=== PATIENT | female | born 1945 | race Caucasian/White ===

== ENCOUNTER → 2019-12-16 | Outpatient (CLI) | payer OTHER ==
[~2019-12-16] VITALS: Ht 175.3 cm; Wt 134.3 kg
[~2019-12-16] MED LIST: ASPIR 8181 MG PO; AVALIDE 150-121 EACH PO; AVAPRO 150 MG150 M1 PO; B12 5,000 MCG1 EACH IM; BENADRYL25 MG PO; CARVEDILOL12.5 MG PO; CBD SUBLING; CHOLESTOFF PO; COLACE100 MG PO; COZAAR 25 MG TA25 M2 PO; DOXYCYCLINE 10100 MG PO; ESTRACE0.5 MG PO; FLAGYL500 MG PO; FLEXERIL PO; HYZAAR 50-12.51 EACH PO; LASIX 40 MG TAB40 M2 PO; LORTAB PO; MEDROLDOSEPACK PO; NITROSTAT0.4 MG PO; ONE DAILY WOME0.4 MG PO; PEPCID40 MG PO; POTASSIUM20 PO; PRAVACHOL40 MG PO; PREVACID 30MG C30 M1 PO; PROTONIX40 M1 PO; PROVENTIL HFA6.7 G1 INH; PROVENTIL17 G1; SM FISH OIL 1,1 EACH PO; SYMBICORT160 MCG/4.; VENTOLIN HFA 1818 GM INH; VITAMIN B-12500 MCG IM; VITAMIN D 5050000 I1; VITAMIN D-32000 UNIT PO; VITAMIN E400 UNIT PO; ZETIA10 MG PO; ZOCOR 20 MG TAB20 M1 PO; ecotrin PO
--- NOTE | 2019-12-17 15:07 | PATH ---
[facility] [address] [place] [address] PATHOLOGY RPT PROCEDURE Name: JESSICAPRAVEENAFRANCISCO J BATES Room #: REG WIN Ruano.#: [id number] Admission: 12/16/19 Date of : 47 Discharge: Report #: [id number] Path Case #: [id number] [facility] Accession Number: [id number] . 01 Material submitted: . colon - RANDOM COLONIC BIOPSIES TO R/O MICROSCOPIC COLITIS . 01 Clinical history: . R/O microscopic colitis, change in stools . 02 Diagnosis: Colon, random biopsies: - Multiple fragments of colonic mucosa with no significant histopathologic diagnosis. (SKM:simon; 12/17/2019) [facility] 12/17/2019 1357 Local . 02 Electronically signed: . Ac Rose MD, Pathologist NPI- [id number] . 01 Gross description: . The specimen is received in formalin, labeled "Purdon, Praveena", "random colon biopsies". Received are multiple segments of pale tucker soft tissue, ranging in size from 0.1 cm to 0.2 cm. The specimen is entirely submitted in cassette A1.(SNA; 12/16/2019) [facility] 12/16/2019 1728 Local . 02 Pathologist provided ICD-10: R19.4 . 02 CPT . 374399 Specimen Comment: A courtesy copy of this report has been sent to [phone] Specimen Comment: [phone] Specimen Comment: Report sent to / DR FORMAN Performed at: [address] [facility], [place], [place] [id number] MD Joe Justice MD Phone: [phone] Performed at: [address] [facility] [id number] MD Dimple Culp MD Phone: [phone]
--- NOTE | 2019-12-18 08:20 | P ---
[facility] [place] [address] PROCEDURE REPORT Name: DAMIAN LOPEZ Room #: REG Angus Pak#: [id number] Admission: 12/16/19 Attend Phys: Dane Núñez Discharge: Date of : 47 Report #: [id number] THIS REPORT FOR: cc: Kassidy Calderon MD, Deborah S. MD McElhinney, Christian C. MD ~ THIS REPORT FOR: //name// CC: Dane Calderon MD DATE OF SERVICE: 12/16/2019 PROCEDURE PERFORMED: Flexible sigmoidoscopy with biopsies. HISTORY OF PRESENT ILLNESS: The patient is a 74-year-old female who was seen in the office on 11/12/2019 with a change in stools. Stools have been soft and having more difficulty with bowel movements recently, also being flat at times. She denies any blood in her stools. No true diarrhea. She has tried probiotics and fiber without much benefit. Colonoscopy in 2018, in which two small polyps were removed. She has also had a partial sigmoid resection for diverticulitis in the past. Plan is for flexible sigmoidoscopy. DESCRIPTION OF PROCEDURE: The risks and benefits of the procedure were explained to the patient, those risks including but not limited to bleeding, perforation and the risk of sedation. She understood these risks and gave informed consent. Sedation was given using propofol per anesthesia. Next, a digital rectal exam was initially performed, which was normal. Next, using a standard Olympus colonoscope, the scope was placed in the patient's anus and advanced under direct vision into the descending colon. The overall prep was good. Descending colon was normal. In the remaining sigmoid colon, the surgical anastomosis was noted. This was well-healed and widely patent, otherwise normal. The rectal mucosa was normal. There was no evidence of colitis or inflammation. Random biopsies were obtained today to rule out the possibility of microscopic colitis and a stool sample was sent for fecal fat and muscle fibers, no abnormalities were noted on retroflexion. Close examination of the anal canal showed a small anal fissure. No evidence of bleeding. The scope was then withdrawn and the procedure terminated. The patient tolerated the procedure well. IMPRESSION: Small anal fissure may be contributing to difficulty with bowel movements. The patient has already tried Analpram, which has not been helpful, may consider nifedipine ointment. RECOMMENDATIONS: We will await stool studies and biopsies as well. [address] [address] PROCEDURE REPORT Name: DAMIAN LOPEZ Room #: REG WIN Pak#: [id number] Admission: 12/16/19 Attend Phys: Dane Núñez Discharge: Date of : 47 Report #: [id number] Thank you for allowing me to participate in her care. <ELECTRONICALLY SIGNED> By: Dane Post MD 12/18/19 0820 [id number] 09 Dane Post, /will
== END | disposition home or self-care (01) ==
LOC: GI 07:01
DX: R19.4 Change in bowel habit (principal); K60.2 Anal fissure, unspecified; K21.9 Gastro-esophageal reflux disease without esophagitis; I12.9 Hypertensive chronic kidney disease with stage 1 through stage 4 chronic kidney disease, or unspecified chronic kidney disease; N18.3 Chronic kidney disease, stage 3 (moderate); E78.5 Hyperlipidemia, unspecified; G47.30 Sleep apnea, unspecified; Z86.010 Personal history of colon polyps; Z98.0 Intestinal bypass and anastomosis status; Z98.890 Other specified postprocedural states; Z95.0 Presence of cardiac pacemaker; Z79.899 Other long term (current) drug therapy; Z85.828 Personal history of other malignant neoplasm of skin; Z86.73 Personal history of transient ischemic attack (TIA), and cerebral infarction without residual deficits; Z90.710 Acquired absence of both cervix and uterus; Z86.711 Personal history of pulmonary embolism; Z79.01 Long term (current) use of anticoagulants; Z98.41 Cataract extraction status, right eye; Z88.0 Allergy status to penicillin; Z88.2 Allergy status to sulfonamides; Z88.8 Allergy status to other drugs, medicaments and biological substances; Z91.040 Latex allergy status
CPT/HCPCS: 62110; 62900